=== PATIENT | male | born 1970 | race Caucasian/White ===

== ENCOUNTER 2018-12-12 06:33 | Inpatient (IN) | payer OTHER, MEDICAID ==
[~2018-12-12] VITALS: Ht 160 cm; Wt 95.0 kg
[~2018-12-12 06:33] MED LIST: CINA60TA PO; FOLI1CAP PO; SEVE800T7 PO
[2018-12-12] MEDS ORDERED: SOD CHLORIDE 0.9% 500 ML IV STA (06:44)
[2018-12-12] MEDS ORDERED: ASPIRIN 325 MG TAB PO STA (06:44)
--- NOTE | 2018-12-12 06:54 | ERD ---
ER Documentation Chief Complaint Chief Complaint Palpitations started one hour into dialysis HPI This is a 48-year-old male with a past medical history of end-stage renal disease on hemodialysis. The patient had received an hour and a half into dialysis today when he developed a sudden onset of palpitations after drinking 3 shots of espresso. The patient's heart rate was greater than 150. He denied any chest pain. He had no shortness of breath. He denies any abdominal pain. He indicated that his dialysis nurse became concerned and phoned 911. He was brought to the emergency department to be further evaluated. EMS stated that the patient's heart rate was 152. He was also hypotensive with a blood pressure 99/66. The patient states howeve that the patient is hypotensive on a regular basis. He states his baseline blood pressure ranges between 90 mmHg 200 mmHg systolic. 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 ld nolasco. He indicates he has been placed on medication to improve his hypotension. He denies a headache or dizziness. The patient also has a colostomy secondary to a spinal procedure that was performed 3 months prior to arrival at [facility] he is currently waiting for revision. ROS All systems reviewed and are negative except as per history of present illness. 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 Well-nourished. HEENT:Normocephalic. Atraumatic.Pupils were equal round reactive to light. Moist mucous membranes.No tonsillar exudates. Neck: No nuchal rigidity. No lymphadenopathy. No posterior cervical spine tenderness or step-offs. Respiratory: Not using accessory muscles of respiration.Lungs were clear to auscultation bilaterally. No rhonchi. No rales. No wheezing. Cardiovascular: Tachycardic with regular.No murmurs. No rubs were appreciat ed.S1, S2 normal. Distal pulses are palpable 2+ bilaterally. GI: Abdomen was soft. Nontender. Non Distended. No pulsatile abdominal masses or bruits. No rebound. No guarding. Bowel sounds were present and normal. Colostomy bag present the left lower quadrant with no surrounding erythremia or tenderness and brown stool present in the colostomy bag Muscle skeletal: Full range of motion of both the upper and lower extremities bilaterally.Normal muscle tone.No assymetrical calf tenderness or swelling. Skin: No petechia, no purpura. No lesions on the palms or the soles of the feet. No maculopapular rash. Positive thrill and bruit of the left upper extremity fistula NEURO: Patient was alert, awake, orientated x3.No facial droop. Gait observed and normal with no ataxia.Speech had regular rate and rhythm. No focal neurological deficits. Result Diagram: 12/12/18 0650 12/12/18 0650 Results 24 hrs Laboratory Tests Test 12/12/18 06:50 White Blood Count 6.5 10^3/ul Red Blood Count 4.38 10^6/ul Hemoglobin 12.3 g/dl Hematocrit 39.4 % Mean Corpuscular Volume 90.0 fl Mean Corpuscular Hemoglobin 28.1 pg Mean Corpuscular Hemoglobin Concent 31.2 g/dl Red Cell Distribution Width 17.0 % Platelet Count 239 10^3/UL Mean Platelet Volume 9.3 fl Immature Granulocytes % 0.200 % Neutrophils % 55.5 % Lymphocytes % 28.0 % Monocytes % 10.1 % Eosinophils % 5.4 % Basophils % 0.8 % Nucleated Red Blood Cells % 0.0 /100WBC Immature Granulocytes # 0.010 10^3/ul Neutrophils # 3.6 10^3/ul Lymphocytes # 1.8 10^3/ul Monocytes # 0.7 10^3/ul Eosinophils # 0.4 10^3/ul Basophils # 0.1 10^3/ul Nucleated Red Blood Cells # 0.0 10^3/ul Prothrombin Time 13.8 Sec Prothrombin Time Ratio 1.1 INR International Normalized Ratio 1.05 Activated Partial Thromboplast Time 31.2 Sec Sodium Level 144 mmol/L Potassium Level 4.1 mmol/L Chloride Level 100 mmol/L Carbon Dioxide Level 27 mmol/L Anion Gap 17 Blood Urea Nitrogen 34 mg/dl Creatinine 6.38 mg/dl Est Glomerular Filtrat Rate mL/min 9 mL/min Glucose Level 106 mg/dl Calcium Level 7.4 mg/dl Total Bilirubin 0.0 mg/dl Direct Bilirubin 0.00 mg/dl Indirect Bilirubin 0.0 mg/dl Aspartate Amino Transf (AST/SGOT) 25 IU/L Alanine Aminotransferase (ALT/SGPT) 23 IU/L Alkaline Phosphatase 179 IU/L Creatine Kinase 39 IU/L Creatine Kinase Index 0.9 Creatinine Kinase MB (Mass) 0.35 ng/ml Troponin I < 0.012 ng/ml Total Protein 7.7 g/dl Albumin 3.8 g/dl Globulin 3.90 g/dl Albumin/Globulin Ratio 0.97 Current Medications Medications Dose Sig/Sharee Start Time Status Last (Trade) Ordered Route PRN Stop Time Admin Dose Reason Admin Sodium 500 ml @ Q1H STAT 12/12/18 DC 12/12/18 Chloride 500 mls/hr IV 06:44 06:51 12/12/18 07:43 Aspirin 325 mg ONCE STAT 12/12/18 DC 12/12/18 (Aspirin) PO 06:44 06:51 12/12/18 06:48 Labetalol 10 mg ONCE ONCE 12/12/18 DC 12/12/18 HCl IV 07:00 06:51 (Labetalol) 12/12/18 07:01 Diltiazem 20 mg ONCE ONCE 12/12/18 DC 12/12/18 HCl IV 07:30 07:38 (Cardizem Iv) 12/12/18 07:31 Diltiazem 20 mg ONCE ONCE 12/12/18 DC 12/12/18 HCl IV 08:30 08:14 (Cardizem Iv) 12/12/18 08:31 Ondansetron 4 mg ER BRIDGE 12/12/18 HCl (Zofran PRN IV 09:00 Inj) NAUSEA AND/OR 12/13/18 08:59 VOMITING 650 mg ER BRIDGE 12/12/18 Acetaminophen PRN PO MILD 09:00 (Tylenol PAIN(1-3)OR 12/13/18 08:59 Tab) ELEVATED TEMP Procedures/MDM This is a 48-year-old male with history of end-stage renal disease on hemodialysis. The patient presented to the emergency department tachycardic. ACLS protocol was followed. Patient was immediately placed on a hotel valet attendant continuous pulse ox obtain IV access was established by nursing staff. 12 Lead EKG tracing ordered and reviewed by myself showed: Sinus tachycardia with a heart rate of 140 bpm and no arrhythmia. NH interval normal. QRS duration normal at [address] segment elevation No ST segment depression. No changes consistent with acute ischemia. The EKG was read as supraventricular tachycardia however I did not agrees that yesterday she was within normal limits and the patient did not have a narrow complex tachycardia. The patient was in no distress. He was hemodynamically stable. The patient's blood pressure was a systolic of 106 mmHg. The patient is anuric. However I did feel the patient could handle a small fluid bolus and was given IV labetalol to treat the tachycardia. Heart rate had improved to 120 bpm. His blood pressure remained stable. Therefore at this time he was given IV Cardizem. EEG ordered and reviewed by myself indicated that the patient had a sinus tachycardia 112 bpm. Paratubal was normal. QRS duration normal at 94 ms. There is no ST segment elevation or depression no irregular rhythm. The patient's BUN and creatinine were elevated but his potassium was within normal limits. There is no evidence of pneumonia or pulmonary edema. I did not find any evidence of sepsis. The patient will be admitted to the undergo emergent hemodialysis. I did feel the patient's tachycardia more likely result of his caffeine use versus an infectious process. No evidence of pulmonary edema. The patient will be admitted to the hospitalist Dr. Osborne. I did feel the patient was able to go to the telemetry service. Critical Care: Time: 45 minutes Treatments/Evaluations: Close monitoring and treatment of unstable vital signs, cardiorespiratory, and neurologic status, while maintaining tight balance of fluid, respiratory, and cardiac interventions. Time does not include performing any of the above billable procedures. Departure Diagnosis: Primary Impression: Palpitations Additional Impressions: Sinus tachycardia Renal failure (ARF), acute on chronic Acute renal failure type: unspecified Chronic kidney disease stage: on chronic dialysis Qualified Codes: N17.9 - Acute kidney failure, u nspecified; N18.9 - Chronic kidney disease, unspecified; Z99.2 - Dependence on renal dialysis Condition: Serious ANA RABAGO MD Dec 12, 2018 06:54
[2018-12-12] MEDS ORDERED: LABETALOL HCL 20MG INJ IV ONE (07:00)
[2018-12-12] MEDS ORDERED: DILTIAZEM 25 MG INJ IV ONE ×2 (07:30→08:30)
[2018-12-12] MEDS ORDERED: ONDANSETRON 4 MG INJ IV PRN ×2 (09:00→13:00)
[2018-12-12] MEDS ORDERED: ACETAMINOPHEN 325 MG TAB PO PRN ×2 (09:00→13:00)
--- NOTE | 2018-12-12 12:55 | HP ---
Date/Time of Note Date/Time of Note DATE: 12/12/18 TIME: 12:49 Assessment/Plan VTE Prophylaxis Pharmacological prophylaxis: heparin Lines/Catheters IV Catheter Type (from Nrsg): Saline Lock Assessment/Plan Assessment/Plan 48-year-old male who was sent to us from the hemodialysis unit after he started having palpitations during dialysis with tachycardia currently admitted and managed as follows 1. new onset palpitations and sinus tachycardia -Patient had also had some coffee prior to dialysis, this may be contributory, will also get urinalysis and urine drug screen -Patient will be admitted to telemetry for observation and to complete dialysis session 2. End-stage renal disease on hemodialysis -Dr Barbosa (partner of dr Juárez ) notified for need for HD order 3. 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 No acute issues so far on this admission. 5. Spinal bifida Patient has a history of this condition. No acute issues so far on this admission. 6. Chronic hypotension -Patient has a history of this condition. No acute issues so far on this admission. 7. Recent colostomy placement after spinal surgery -stable, good output, no abd pain Result Diagram: 12/12/18 0650 12/12/18 0650 Results 24hrs Laboratory Tests Test 12/12/18 06:50 White Blood Count 6.5 Red Blood Count 4.38 L Hemoglobin 12.3 L Hematocrit 39.4 L Mean Corpuscular Volume 90.0 Mean Corpuscular Hemoglobin 28.1 L Mean Corpuscular Hemoglobin Concent 31.2 L Red Cell Distribution Width 17.0 H Platelet Count 239 Mean Platelet Volume 9.3 Immature Granulocytes % 0.200 Neutrophils % 55.5 Lymphocytes % 28.0 Monocytes % 10.1 Eosinophils % 5.4 Basophils % 0.8 Nucleated Red Blood Cells % 0.0 Immature Granulocytes # 0.010 Neutrophils # 3.6 Lymphocytes # 1.8 Monocytes # 0.7 Eosinophils # 0.4 Basophils # 0.1 Nucleated Red Blood Cells # 0.0 Prothrombin Time 13.8 Prothrombin Time Ratio 1.1 INR International Normalized Ratio 1.05 Activated Partial Thromboplast Time 31.2 Sodium Level 144 Potassium Level 4.1 Chloride Level 100 Carbon Dioxide Level 27 Anion Gap 17 H Blood Urea Nitrogen 34 H Creatinine 6.38 H Est Glomerular Filtrat Rate mL/min 9 L Glucose Level 106 Calcium Level 7.4 L Total Bilirubin 0.0 L Direct Bilirubin 0.00 Indirect Bilirubin 0.0 Aspartate Amino Transf (AST/SGOT) 25 Alanine Aminotransferase (ALT/SGPT) 23 Alkaline Phosphatase 179 H Creatine Kinase 39 Creatine Kinase Index 0.9 Creatinine Kinase MB (Mass) 0.35 Troponin I < 0.012 Total Protein 7.7 Albumin 3.8 Globulin 3.90 H Albumin/Globulin Ratio 0.97 HPI/ROS Admit Date/Time Admit Date/Time Hx of Present Illness This is a 48-year-old male with a past medical history of end-stage renal disease on hemodialysis. The patient was sent to us from the dialysis unit after he developed sudden onset of palpitations while about [facility] into his dialysis session. Blood pressure was also noted to be on the low side, however this is been chronic for patient but he was tachycardic to the 150s and so the nurse got concerned and called 911 and sent the patient to the emergency room. In the ER but no significant abnormalities have been found, EKG just showed a sinus tachycardia. He is being admitted for observation and to complete his dialysis session. Patient had some coffee earlier today which might have contributed to his symptoms. He has no fever, no chest pain, shortness of breath, no passing out episode, no abdominal pain. He has a colostomy that was just recently placed about 3 months ago and is planned for a revision. He states this was secondary to a spinal procedure he had. He has good stool output from the colostomy as far as he knows. He has not noticed any bleeding. ROS 12 point review if systems was done and pertinent findings are as noted. 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 shunt secondary to hydrocephalus Spinal bifida Shunt placement for hemodialysis Chronic hypotension Recent colostomy placement after spinal surgery Medications Current Medications Ondansetron HCl (Zofran Inj) 4 mg ER BRIDGE PRN IV NAUSEA AND/OR VOMITING; Start 12/12/18 at 09:00; Stop 12/13/18 at 08:59 Acetaminophen (Tylenol Tab) 650 mg ER BRIDGE PRN PO MILD PAIN(1-3)OR ELEVATED TEMP; Start 12/12/18 at 09:00; Stop 12/13/18 at 08:59 Coded Allergies: No Known Allergy (Unverified , 12/12/18) Past Surgical History as above Family History Significant Family History: no pertinent family hx Social History Alcohol Use: occasionally Smoking Status: Former smoker Drug Use: none Exam/Review of Systems Vital Signs Vitals Vital Signs Date Temp Pulse Resp B/P (MAP) Pulse Ox O2 O2 Flow FiO2 Time Delivery Rate 12/12/18 97.6 103 20 96/69 (78) 99 Room Air 12:28 Exam Exam General: A&O x3, answering questions appropriately HEENT: NC/ AT. PERRL. EOM intact Neck: supple CVS: S1, S2, RRR. no murmurs. no pain on chest wall palpation Lungs: CTA b/l. no wheezing or rhonchi Abd: soft, nontender, +BS, Colostomy bag present the left lower quadrant with no surrounding erythremia or tenderness and brown stool present in the colostomy bag Ext: moving all extremities skin: no rashes WILBUR LANCE Dec 12, 2018 12:55
[2018-12-12] MEDS ORDERED: LORAZEPAM 0.5 MG TAB PO PRN (13:00)
--- NOTE | 2018-12-12 15:05 | CONS ---
Date/Time of Note Date/Time of Note DATE: 12/12/18 TIME: 14:59 Assessment/Plan Assessment/Plan Assessment/Plan - ESRD on Hemodialysis - New Onset / ? Palpitation / Arrhythmia - CAD / CHF - Anemia - Hx of Failed renal Transplant - Hx of AV Shunt - High Cholesterol - High Phos. PLAN: - Patient will be admitted on tele floor - Observation - R/O Acute MN - Will plan for HD today ( did not finish HD today as out patient ) - Follow up with Electrolytes closely THANK YOU Geraldine MAYORGA Result Diagram: 12/12/18 0650 12/12/18 0650 Results 24hrs Laboratory Tests Test 12/12/18 06:50 White Blood Count 6.5 Red Blood Count 4.38 L Hemoglobin 12.3 L Hematocrit 39.4 L Mean Corpuscular Volume 90.0 Mean Corpuscular Hemoglobin 28.1 L Mean Corpuscular Hemoglobin Concent 31.2 L Red Cell Distribution Width 17.0 H Platelet Count 239 Mean Platelet Volume 9.3 Immature Granulocytes % 0.200 Neutrophils % 55.5 Lymphocytes % 28.0 Monocytes % 10.1 Eosinophils % 5.4 Basophils % 0.8 Nucleated Red Blood Cells % 0.0 Immature Granulocytes # 0.010 Neutrophils # 3.6 Lymphocytes # 1.8 Monocytes # 0.7 Eosinophils # 0.4 Basophils # 0.1 Nucleated Red Blood Cells # 0.0 Prothrombin Time 13.8 Prothrombin Time Ratio 1.1 INR International Normalized Ratio 1.05 Activated Partial Thromboplast Time 31.2 Sodium Level 144 Potassium Level 4.1 Chloride Level 100 Carbon Dioxide Level 27 Anion Gap 17 H Blood Urea Nitrogen 34 H Creatinine 6.38 H Est Glomerular Filtrat Rate mL/min 9 L Glucose Level 106 Calcium Level 7.4 L Total Bilirubin 0.0 L Direct Bilirubin 0.00 Indirect Bilirubin 0.0 Aspartate Amino Transf (AST/SGOT) 25 Alanine Aminotransferase (ALT/SGPT) 23 Alkaline Phosphatase 179 H Creatine Kinase 39 Creatine Kinase Index 0.9 Creatinine Kinase MB (Mass) 0.35 Troponin I < 0.012 Total Protein 7.7 Albumin 3.8 Globulin 3.90 H Albumin/Globulin Ratio 0.97 Consultation Date/Type/Reason Admit Date/Time Date of Consultation: Dec 12, 2018 Type of Consult - NEPHROLOGY Reason for Consultation - ESRD Hemodialysis dependent Hx of Present Illness - 48-year-old male who was sent to us from the hemodialysis unit after he star tonia having palpitations during dialysis - Hx of Failed Renal transplant - Hx of AV shunt Constitutional: no complaints Eyes: no complaints ENT: no complaints Respiratory: no complaints Cardiovascular: palpitations Past Medical History Medical History: congestive heart failure, coronary artery disease, diabetes, hypertension, renal disease Medications Current Medications Ondansetron HCl (Zofran Inj) 4 mg ER BRIDGE PRN IV NAUSEA AND/OR VOMITING; Start 12/12/18 at 09:00; Stop 12/13/18 at 08:59 Acetaminophen (Tylenol Tab) 650 mg ER BRIDGE PRN PO MILD PAIN(1-3)OR ELEVATED TEMP; Start 12/12/18 at 09:00; Stop 12/13/18 at 08:59 Cinacalcet (Sensipar) 60 mg DAILY PO ; Start 12/13/18 at 09:00; Status UNV Sevelamer Carbonate (Renvela) 0.8 gm WITH MEALS PO ; Start 12/12/18 at 18:00; Status UNV Miscellaneous Information 1 mg DAILY PO ; Start 12/13/18 at 09:00; Status UNV Lorazepam (Ativan) 0.5 mg Q8H PRN PO ANXIETY; Start 12/12/18 at 13:00 Ondansetron HCl (Zofran Inj) 4 mg Q6H PRN IV NAUSEA AND/OR VOMITING; Start 12/12/18 at 13:00 Aspirin (Aspirin) 81 mg DAILY PO ; Start 12/13/18 at 09:00 Acetaminophen (Tylenol Tab) 650 mg Q6H PRN PO PAIN LEVEL 1-3 OR FEVER; Start 12/12/18 at 13:00 Docusate Sodium (Colace) 100 mg Q12 PO ; Start 12/12/18 at 14:30 Famotidine (Pepcid) 20 mg DAILY PO ; Start 12/13/18 at 09:00 Heparin Sodium (Porcine) (Heparin (5000 Units/1ml)) 5,000 unit Q12 SC ; Start 12/12/18 at 21:00 Allergies: Coded Allergies: No Known Allergy (Unverified , 12/12/18) Past Surgical History Past Surgical Hx: other (Post Renal Transplant, Post AVF) Family History Significant Family History: no pertinent family hx Social History Alcohol Use: none Smoking Status: Former smoker Drug Use: none Exam/Review of Systems Vital Signs Vitals Vital Signs Date Temp Pulse Resp B/P (MAP) Pulse Ox O2 O2 Flow FiO2 Time Delivery Rate 12/12/18 97.6 103 20 96/69 (78) 99 Room Air 12:28 Exam Constitutional: alert Psych: no complaints Respiratory: crackles/rales Cardiovascular: edema, irregular rhythm, systolic murmur Gastrointestinal: soft Medications Medications Current Medications Ondansetron HCl (Zofran Inj) 4 mg ER BRIDGE PRN IV NAUSEA AND/OR VOMITING; Start 12/12/18 at 09:00; Stop 12/13/18 at 08:59 Acetaminophen (Tylenol Tab) 650 mg ER BRIDGE PRN PO MILD PAIN(1-3)OR ELEVATED TEMP; Start 12/12/18 at 09:00; Stop 12/13/18 at 08:59 Cinacalcet (Sensipar) 60 mg DAILY PO ; Start 12/13/18 at 09:00; Status UNV Sevelamer Carbonate (Renvela) 0.8 gm WITH MEALS PO ; Start 12/12/18 at 18:00; Status UNV Miscellaneous Information 1 mg DAILY PO ; Start 12/13/18 at 09:00; Status UNV Lorazepam (Ativan) 0.5 mg Q8H PRN PO ANXIETY; Start 12/12/18 at 13:00 Ondansetron HCl (Zofran Inj) 4 mg Q6H PRN IV NAUSEA AND/OR VOMITING; Start 12/12/18 at 13:00 Aspirin (Aspirin) 81 mg DAILY PO ; Start 12/13/18 at 09:00 Acetaminophen (Tylenol Tab) 650 mg Q6H PRN PO PAIN LEVEL 1-3 OR FEVER; Start 12/12/18 at 13:00 Docusate Sodium (Colace) 100 mg Q12 PO ; Start 12/12/18 at 14:30 Famotidine (Pepcid) 20 mg DAILY PO ; Start 12/13/18 at 09:00 Heparin Sodium (Porcine) (Heparin (5000 Units/1ml)) 5,000 unit Q12 SC ; Start 12/12/18 at 21:00 SOPHIA LABOY MD Dec 12, 2018 15:05
[2018-12-12 16:41] VITALS: BP 121/74; PULSE 75; PULSE 80; RESP 20
[2018-12-12 17:00] VITALS: Ht 160 cm; Wt 95.0 kg
[2018-12-12] MEDS: SEVELAMER CARBONATE 0.8 GM PKT PO SCH (17:44)
[2018-12-12] MEDS: DOCUSATE SODIUM 100 MG CAP PO SCH ×2 (17:45→21:03)
[2018-12-12] MEDS ORDERED: CINACALCET 30 MG TAB PO SCH (18:00)
--- NOTE | 2018-12-12 18:13 | RADRPT ---
Echocardiogram Report Patient Name: LANDY ROQUE Gender: Male Date: 1970 Study Date: 12-Dec-2018 Vulnerability Researcher: TB Location: ER7 Ref. Physician: WILBUR LANCE Quality: Good Procedures: Transthoracic echocardiogram with complete 2D, M-Mode, and doppler examination. Indications: Tachycardia. 2D/M Mode Doppler Measurement Value Normal Ranges Measurement Value Normal Ranges LVIDd 2D 4.7 3.5 - 5.6 cm AV Mean Yrn 1.6 m/sec LVIDs 2D 3.0 2.1 - 4.1 cm AV Mean PG 11.0 mmHg LVPWd 2D 1.2 0.6 - 1.1 cm AV Peak Yrn 2.3 m/sec IVSd 2D 1.3 0.6 - 1.1 cm AV Peak PG 21.0 mmHg AoR Diam 2D 3.6 2.0 - 3.7 cm AV VTI 53.8 cm LA/Ao 2D 1 0 - 1 LVOT Mean Yrn 0.6 m/sec EF 2D 64.0 50.0 - 65.0 % LVOT Mean PG 1.0 mmHg LA Dimen 2D 3.8 2.3 - 4.0 cm LVOT Peak Yrn 0.9 m/sec IVC Diam 2.3 1.2 - 2.0 LVOT Peak PG 3.0 mmHg MV E Peak Yrn 1.2 m/sec MV A Peak Yrn 0.9 m/sec MV E/A 1.2 MV PHT 70.0 msec MV Decel Time 239 msec MV Decel [place] 5 Lat E` Yrn 0.1 m/sec Lateral E/E` 14.1 Med E` Yrn 0.1 m/sec MV E/A 1.2 MV PHT 70.0 msec MVA PHT 3.1 cm2 TAPSE 1.9 cm TR Peak Yrn 2.3 m/sec TR Peak PG 21.0 mmHg RVSP 24.0 mmHg RA Pressure 3.0 Findings Left Ventricle: Normal left ventricular systolic function. Normal left ventricular cavity size. Mild concentric left ventricular hypertrophy. Ejection fraction is visually estimated at 55 %. Tissue Doppler/Mitral Doppler indices are consistent with pseudonormalization with mildly elevated left atrial pressure (Stage II diastolic dysfunction). Right Ventricle: Normal right ventricular size. Normal right ventricular systolic function. Left Atrium: There is mild enlargement of left atrium. Right Atrium: The right atrium is normal in size. Mitral Valve: Normal appearance and function of the mitral valve with trace physiologic regurgitation. Aortic Valve: Aortic sclerosis without significant stenosis. No aortic regurgitation. Tricuspid Valve: Normal appearance and function of the tricuspid valve with trace physiologic regurgitation. Normal right ventricular systolic pressure. Estimated peak PA systolic pressure 29 mmHg. Pulmonic Valve: Normal pulmonic valve appearance. Pericardium: Trivial pericardial effusion. Aorta: Normal aortic root. IVC: Dilated IVC with respiratory collapse consistent with elevated right atrial pressure. Conclusions Normal left ventricular systolic function. Normal left ventricular cavity size. Mild concentric left ventricular hypertrophy. Ejection fraction is visually estimated at 55 %. Tissue Doppler/Mitral Doppler indices are consistent with pseudonormalization with mildly elevated left atrial pressure (Stage II diastolic dysfunction). Aortic sclerosis without significant stenosis. No aortic regurgitation. Estimated peak PA systolic pressure 29 mmHg based on RA pressure of 8 mmHg. Electronically Signed By: Lucas Prater 12-Dec-2018 18:12:14 -0800 Patient Name: LANDY ROQUE Study Date: 12-Dec-2018 [id number]
[2018-12-12 19:25] VITALS: BP 94/49; PULSE 96; RESP 18
[2018-12-12 20:00] VITALS: PULSE 89
[2018-12-12] MEDS: HEPARIN 5,000 UNIT/1 ML VIAL SC SCH (21:01)
[2018-12-12 23:11] VITALS: BP 111/74; PULSE 85
[2018-12-13] VITALS (21 sets, daily range): BP systolic 94–163; BP diastolic 47–76; PULSE 76–103; RESP 17–20
[2018-12-13] MEDS: SEVELAMER CARBONATE 0.8 GM PKT PO SCH ×2 (08:39→12:00)
[2018-12-13] MEDS: DOCUSATE SODIUM 100 MG CAP PO SCH (08:40)
[2018-12-13] MEDS: HEPARIN 5,000 UNIT/1 ML VIAL SC SCH (08:48)
[2018-12-13] MEDS ORDERED: MULTIVIT/CA CARB/B CMPLX/FA TAB PO SCH (09:00)
[2018-12-13] MEDS ORDERED: ASPIRIN 81 MG TAB PO SCH (09:00)
[2018-12-13] MEDS ORDERED: FAMOTIDINE 20 MG TAB PO SCH (09:00)
[2018-12-13] MEDS ORDERED: NON-FORMULARY/PATIENT OWN MED (Folic Acid/Vitamin B Comp W-C (Nephrocaps Capsule) 1 MG) PO SCH (09:00)
--- NOTE | 2018-12-13 11:55 | DS ---
Date/Time of Note Date/Time of Note DATE: 12/13/18 TIME: 11:51 Discharge Summary Admission/Discharge Info Admit Date/Time Dec 12, 2018 at 09:01 Discharge Date/Time December 13, 2018 Discharge Diagnosis Palpitations; end-stage renal disease on hemodialysis; essential hypertension; hyperlipidemia; diastolic dysfunction grade 2; history of [employer] C[employer] shunt; spina bifida; colostomy; secondary hyperparathyroidism Patient Condition: Good Consults Nephrology-Dr. Laboy Procedures Echocardiogram; Conclusions Normal left ventricular systolic function. Normal left ventricular cavity size. Mild concentric left ventricular hypertrophy. Ejection fraction is visually estimated at 55 %. Tissue Doppler/Mitral Doppler indices are consistent with pseudonormalization with mildly elevated left atrial pressure (Stage II diastolic dysfunction). Aortic sclerosis without significant stenosis. No aortic regurgitation. Estimated peak PA systolic pressure 29 mmHg based on RA pressure of 8 mmHg. Hemodialysis Hx of Present Illness Hx of Present Illness This is a 48-year-old male with a past medical history of end-stage renal disease on hemodialysis. The patient was sent to us from the dialysis unit after he developed sudden onset of palpitations while about mcc into his dialysis session. Blood pressure was also noted to be on the low side, however this is been chronic for patient but he was tachycardic to the 150s and so the nurse got concerned and called 911 and sent the patient to the emergency room. In the ER but no significant abnormalities have been found, EKG just showed a sinus tachycardia. He is being admitted for observation and to complete his dialysis session. Patient had some coffee earlier today which might have contributed to his symptoms. He has no fever, no chest pain, shortness of b reath, no passing out episode, no abdominal pain. He has a colostomy that was just recently placed about 3 months ago and is planned for a revision. He states this was secondary to a spinal procedure he had. He has good stool output from the colostomy as far as he knows. He has not noticed any bleeding. Hospital Course 48-year-old gentleman admitted from hemodialysis center. He had follow-up dialysis. Please note his third function tests and pulmonary evaluation and echocardiogram did not demonstrate an and reason or rationale for his tachycardia. He has done well and is going to cease and desist from usage of caffeinated products. At this time he is stable and appropriate for discharge. Home Meds Reported Medications Folic Acid/Vitamin B Comp W-C (Nephrocaps Capsule) 1 Mg Capsule, 1 MG PO DAILY, CAP 02/24/16 Cinacalcet* (Sensipar*) 60 Mg Tablet, 60 MG PO DAILY, TAB 02/24/16 Sevelamer Carbonate* (Renvela*) 800 Mg Tablet, 0.8 GM PO WITH MEALS, TAB 02/24/16 Follow-up Plan Routine scheduled for hemodialysis and follow-up with nephrology and primary care physician Primary Care Provider Not On Staff Doctor Time spent on discharge: > 30 minutes Pending Labs Laboratory Tests Test 12/12/18 14:34 12/12/18 20:26 12/13/18 05:14 Creatine Kinase 42 IU/L (23-200) 49 IU/L (23-200) Creatine Kinase 0.9 0.7 Index Creatinine Kinase 0.39 0.32 MB (Mass) ng/ml (0.0-2.4) ng/ml (0.0-2.4) Troponin I < 0.012 < 0.012 ng/ml (0.000-0.120) ng/ml (0.000-0.120 ) White Blood Count 5.5 10^3/ul (4.8-10.8) Red Blood Count 4.31 10^6/ul (4.70-6.10 ) Hemoglobin 12.1 g/dl (14.0-18.0) Hematocrit 38.7 % (42.0-52.0) Mean Corpuscular 89.8 Volume fl (82.0-101.0) Mean Corpuscular 28.1 Hemoglobin pg (29.0-33.0) Mean Corpuscular 31.3 Hemoglobin Concent g/dl (32.0-37.0) Red Cell 17.1 % (11.5-14.5) Distribution Width Platelet Count 236 10^3/UL (140-415) Mean Platelet 9.6 fl (7.4-10.4) Volume Immature 0.200 Granulocytes % % (0.001-0.429) Neutrophils % 49.1 % (39.0-77.0) Lymphocytes % 34.0 % (15.0-51.0) Monocytes % 8.9 % (0.0-11.0) Eosinophils % 6.9 % (0.0-7.0) Basophils % 0.9 % (0.0-2.0) Nucleated Red Blood 0.0 Cells % /100WBC (0.0-0.0) Immature 0.010 Granulocytes # 10^3/ul (0.0-0.031 ) Neutrophils # 2.7 10^3/ul (1.6-7.5) Lymphocytes # 1.9 10^3/ul (0.8-2.9) Monocytes # 0.5 10^3/ul (0.3-0.9) Eosinophils # 0.4 10^3/ul (0.0-0.5) Basophils # 0.1 10^3/ul (0.0-0.1) Nucleated Red Blood 0.0 Cells # 10^3/ul (0.0-0.0) Sodium Level 141 mmol/L (135-144) Potassium Level 4.0 mmol/L (3.5-5.1) Chloride Level 97 mmol/L (97-110) Carbon Dioxide 30 mmol/L (21-31) Level Anion Gap 14 (5-13) Blood Urea 20 mg/dl (7-20) Nitrogen Creatinine 4.50 mg/dl (0.61-1.24) Est Glomerular 14 mL/min (>60) Filtrat Rate mL/min Glucose Level 84 mg/dl (70-220) Calcium Level 8.0 mg/dl (8.4-10.2) Magnesium Level 2.0 mg/dl (1.7-2.5) Thyroid Stimulating 2.410 Hormone (TSH) MIU/L (0.465-4.680 ) Copies To: CC: SOPHIA LABOY MD ; NAVID TONG MD Dec 13, 2018 11:55
--- NOTE | 2018-12-13 11:55 | PDOCDIS ---
Discharge Instructions DIAGNOSIS Discharge Diagnosis Palpitations; end-stage renal disease on hemodialysis; essential hypertension; hyperlipidemia; diastolic dysfunction grade 2; history of [employer] shunt; spina bifida ; colostomy; secondary hyperparathyroidism CONDITION [id number] Patient Condition: [id number] Fair HOME CARE INSTRUCTIONS: Smita Special Diet: [id number] renal ACTIVITY: [id number] Activity Restrictions: [id number] Slowly Increase Activity Do not operate Machinery Do not operate Power Tool FOLLOW UP/APPOINTMENTS Follow-up Plan Routine scheduled for hemodialysis and follow-up with nephrology and primary care physician NAVID TONG MD Dec 13, 2018 11:55
[2018-12-13] MEDS ORDERED: METOPROLOL 5 MG INJ IV ONE (12:30)
== END 2018-12-13 13:31 | disposition home or self-care (01) | DRG 308 ==
LOC: E/R 06:33 → 6WM 09:01
PROVIDERS: ADMIT Family Medicine; ATTEND Family Medicine
PROC: 5A1D70Z Performance of Urinary Filtration, Intermittent, Less than 6 Hours Per Day (ICD-10-PCS; principal; 2018-12-13)
DX: R00.2 Palpitations (principal); N18.6 End stage renal disease; T86.12 Kidney transplant failure; I13.0 Hypertensive heart and chronic kidney disease with heart failure and stage 1 through stage 4 chronic kidney disease, or unspecified chronic kidney disease; Z99.2 Dependence on renal dialysis; Q05.9 Spina bifida, unspecified; I95.89 Other hypotension; Z93.3 Colostomy status; I25.10 Atherosclerotic heart disease of native coronary artery without angina pectoris; D64.9 Anemia, unspecified; E78.00 Pure hypercholesterolemia, unspecified; R79.0 Abnormal level of blood mineral; N18.9 Chronic kidney disease, unspecified; I50.9 Heart failure, unspecified; E78.5 Hyperlipidemia, unspecified; E21.3 Hyperparathyroidism, unspecified
CPT/HCPCS: 71045; 80048; 80053; 82550; 82553; 83735; 84443; 84484; 85025; 85610; 85730; 90935; 93005; 93306; 96374; 96375; 96376; J1644; J7040